=== PATIENT | female | born 1965 | race Caucasian/White ===

== ENCOUNTER → 2017-10-30 | Outpatient (CLI) | payer SELFPAY ==
[2017-10-30 12:24] LABS: PROTHROMBIN TIME 11.2 SECONDS (9.7-12.8)
[2017-11-01 00:34] LABS: ANA SCREEN with REFLEX Negative (Negative)
== END ==
LOC: COL.LAB 10:41
PROVIDERS: Physician Assistant
DX: B19.20 Unspecified viral hepatitis C without hepatic coma (principal); K85.90 Acute pancreatitis without necrosis or infection, unspecified

== ENCOUNTER → 2017-11-05 | Outpatient (CLI) | payer SELFPAY | LOC: COL.RAD 09:20 | DX: K76.0 Fatty (change of) liver, not elsewhere classified (principal); K85.90 Acute pancreatitis without necrosis or infection, unspecified; B19.20 Unspecified viral hepatitis C without hepatic coma ==